=== PATIENT | female | born 1990 | race Caucasian/White ===

== ENCOUNTER 2018-08-05 21:35 | Outpatient (CLI) | payer OTHER | END 2018-08-05 21:36 | disposition critical access hospital (66) | LOC: EMS 21:35 | PROVIDERS: ATTEND Surgery | DX: O99.89 Other specified diseases and conditions complicating pregnancy, childbirth and the puerperium (principal); R10.9 Unspecified abdominal pain; Z3A.24 24 weeks gestation of pregnancy; Z87.442 Personal history of urinary calculi | CPT/HCPCS: A0425; A0427 ==

== ENCOUNTER 2018-08-05 21:59 | Observation (INO) | payer OTHER ==
[2018-08-05] MEDS ORDERED: LACTATED RINGERS 1,000 ML IV ONE (22:41)
[2018-08-05] MEDS ORDERED: fentaNYL 2,500 MCG/50 ML VIAL IV SCH (23:00)
[2018-08-05] MEDS ORDERED: fentaNYL 100 MCG/2 ML VIAL IVP SCH (23:04)
[2018-08-05 23:15] LABS: BASOPHILS % (AUTO) 0.1 %; EOSINOPHILS # (AUTO) 0.1 10^3/uL (0.0-0.7); EOSINOPHILS % (AUTO) 0.6 %; HGB - HEMOGLOBIN 10.9 g/dL (12.0-16.0); LYMPHOCYTES % (AUTO) 8.9 %; MEAN CORPUSCULAR HEMOGLOBIN 28.6 pg (27.0-31.0); MEAN CORPUSCULAR HGB CONC 33.5 g/dL (32.0-36.0); MEAN CORPUSCULAR VOLUME 85.3 fL (81.0-99.0); MEAN PLATELET VOLUME 7.8 fL (7.9-10.8); MONOCYTES # (AUTO) 0.5 10^3/uL (0.0-1.0); MONOCYTES % (AUTO) 4.6 %; NEUTROPHILS # (AUTO) 9.8 10^3/uL (1.5-6.6); NEUTROPHILS % (AUTO) 85.8 %; PLT - PLATELET COUNT 242 10^3/uL (130-450); RED BLOOD COUNT 3.82 10^6/uL (4.20-5.40); RED CELL DISTRIBUTION WIDTH 13.4 % (12.0-15.0); WHITE BLOOD COUNT 11.4 x10^3/uL (4.8-10.8)
[2018-08-05] MEDS: MORPHINE 10 MG/ML VIAL IVP SCH (23:28)
[2018-08-05 23:31] LABS: ALBUMIN 3.2 g/dL (3.2-5.5); ALBUMIN/GLOBULIN RATIO 1.1 (1.0-2.2); BILIRUBIN,TOTAL 0.5 mg/dL (0.2-1.0); CALCIUM 10.4 mg/dL (8.5-10.3); CREATININE 0.7 mg/dL (0.4-1.0); TOTAL PROTEIN 6.1 g/dL (6.7-8.2)
--- NOTE | 2018-08-05 23:33 | HISTORY & PHYSICAL EXAMINATION ---
Chief Complaint - Chief Complaint Chief Complaint: LEFT FLANK PAIN History of Present Illness - Admitted From Admitted From:: HOME - History Obtained From Records Reviewed: YES History obtained from: PATIENT Exam Limitations: NONE - History of Present Illness HPI Comment/Other: 27 y.o. EDC 11/30/18, EGA 23 2/7 weeks (based on LMP from [facility] Records). Patient placed in observation status overnight for pain control due to presumed right renal colic, which started around 5 PM and progressively worse, to point of patient brought to hospital by EMS. Hx of renal stone x 1 in the past 2 yrs ago shortly . 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 : reports: Kidney stones (x1 two years ago, ) HEENT: reports: None Psych: reports: None Musculoskeletal: reports: None Derm: reports: None MRSA Hx?: No - Past Surgical History Other past surgical history: PSH NEG - Substance History Use: Uses substance without health or social issues: NONE Meds/Allgy - Allergies Allergies/Adverse Reactions: Allergies Allergy/AdvReac Type Severity Reaction Status Date / Time Latex, Natural Rubber Allergy Rash Verified 08/05/18 22:52 Review of Systems - Genitourinary Genitourinary: reports: Flank pain (severe left flank pain) - Musculoskeletal Musculoskeletal: reports: Back pain (left flank/cvat) - Other Findings Other Findings: Beside left flank pain, ROS negative for all other systems: Exam - Vital Signs Reviewed Vital Signs: Yes - Physical Exam General Appearance: positive: Severe distress Eyes Bilateral: positive: Normal inspection ENT: positive: ENT inspection nml Neck: positive: Nml inspection Respiratory: positive: Chest non-tender, No respiratory distress, Breath sounds nml Cardiovascular: positive: Regular rate & rhythm, No murmur Peripheral Pulses: positive: 2+ Abdomen: positive: Non-tender, Other (No guarding or rebound, V/V: no lesions or abnormal dscharge Cx L/C FHR 140s, no evidence of contractions on toco.) Skin: positive: Color nml, No rash, Warm Extremities: positive: Non-tender, Full ROM Neurologic/Psychiatric: positive: Oriented x3, CN's nml (2-12) Conclusion/Plan - Problem List (1) Renal colic on left side Conclusion/Plan: # 23 2/7 weeks with left renal colic, severe. # Observation status overnight for IV Fluids and pain control # Renal US pending # Strain urines. Spoke with spouse on the phone and explained condition. He is coming home tomorrow. Patient understands condition and all questions answered. See orders. - Lab Results Fish Bones: 08/05/18 23:07
[2018-08-05 23:42] LABS: MUDS CUTOFF CONCENTRATIONS CUTOFF CONC BELOW:
[2018-08-05 23:48] LABS: BILIRUBIN,URINE NEGATIVE (NEGATIVE); GLUCOSE, URINE (UA) NEGATIVE (NEGATIVE); KETONES,URINE (UA) NEGATIVE (NEGATIVE); LEUKOCYTE ESTERASE, URINE LARGE (NEGATIVE); NITRITE,URINE POSITIVE (NEGATIVE); OCCULT BLOOD,URINE TRACE-INTA (NEGATIVE); PH,URINE 6.5 PH (5.0-7.5); PROTEIN,URINE NEGATIVE (NEGATIVE); UROBILINOGEN,URINE 0.2 (NORMAL) E.U./dL (NORMAL)
[2018-08-05] MEDS ORDERED: MORPHINE 2 MG/ML SYRINGE IVP ONE (23:50)
[2018-08-05 23:55] LABS: CLARITY,URINE HAZY (CLEAR)
[2018-08-06 00:02] LABS: AMPHETAMINE SCREEN,URINE NEGATIVE (NEGATIVE); BENZODIAZEPINES SCREEN, URINE NEGATIVE (NEGATIVE); COCAINE SCREEN URINE NEGATIVE (NEGATIVE); METHADONE SCREEN, URINE NEGATIVE (NEGATIVE); METHAMPHETAMINES SCREEN, URINE NEGATIVE (NEGATIVE); OPIATE SCREEN, URINE NEGATIVE (NEGATIVE); OXYCODONE SCREEN, URINE NEGATIVE (NEGATIVE); PROPOXYPHENE SCREEN, URINE NEGATIVE (NEGATIVE); TRICYCLIC ANTIDEPRESSANT,URINE NEGATIVE (NEGATIVE)
[2018-08-06 00:12] LABS: BACTERIA,URINE Many /HPF (None Seen); RBC,URINE 0-5 /HPF (0-5); SQUAMOUS EPITHELIAL CELL,UR FEW Squamous (<= Few)
[2018-08-06] MEDS: LACTATED RINGERS 1,000 ML IV SCH ×2 (01:25→12:36)
--- NOTE | 2018-08-06 01:57 | Ultrasound Report ---
Reason: left flank pain Procedure Date: 08/06/2018 Accession Number: [id number] / [id number] Procedure: US - Retroperitoneal Limited CPT Code: FULL RESULT: EXAM: RENAL ULTRASOUND EXAM DATE: 08/06/2018 01:32 AM. CLINICAL HISTORY: Left flank pain. COMPARISON: None. TECHNIQUE: Real-time scanning was performed with static images obtained. FINDINGS: Right Kidney: Not technically imaged. Left Kidney: 12.9 x 5.5 x 5.1 cm. There is left-sided hydronephrosis. In addition there is an echogenic focus in the inferior pole measuring 5.3 x 7.6 mm compatible with a shadowing stone. There is a questionable stone in the distal left ureter near the bladder. Left-sided ureteral jet is noted. IMPRESSION: 1. Left-sided hydronephrosis. 2. Calculus in the lower pole of the left kidney. 3. Probable calculus in the distal left ureter close to the bladder. RADIA
[2018-08-06] MEDS ORDERED: ONDANSETRON 4 MG/2 ML VIAL IVP PRN (02:00)
[2018-08-06] MEDS: MORPHINE 10 MG/ML VIAL IVP SCH ×2 (03:26→07:42)
[2018-08-06] MEDS ORDERED: MORPHINE 2 MG/ML SYRINGE IVP ONE (05:05)
[2018-08-06] MEDS ORDERED: cefTRIAXone 1 GM in SODIUM CHLORIDE 0.9% MINIBAG 100 ML IV SCH (06:00)
[2018-08-06 06:19] LABS: BILIRUBIN,URINE NEGATIVE (NEGATIVE); GLUCOSE, URINE (UA) NEGATIVE (NEGATIVE); KETONES,URINE (UA) 15 mg/dL (NEGATIVE); LEUKOCYTE ESTERASE, URINE SMALL (NEGATIVE); NITRITE,URINE POSITIVE (NEGATIVE); OCCULT BLOOD,URINE NEGATIVE (NEGATIVE); PROTEIN,URINE NEGATIVE (NEGATIVE); UROBILINOGEN,URINE 0.2 (NORMAL) E.U./dL (NORMAL)
[2018-08-06] MEDS ORDERED: SODIUM CHLORIDE 0.9% MINIBAG 100 ML IV ONE (06:30)
[2018-08-06] MEDS ORDERED: SODIUM CHLORIDE FLUSH 0.9% 10 ML SYRINGE ONE ×2 (06:30→06:39)
[2018-08-06 06:31] LABS: CLARITY,URINE HAZY (CLEAR)
[2018-08-06 06:32] LABS: BACTERIA,URINE Few /HPF (None Seen); RBC,URINE None Seen /HPF (0-5); SQUAMOUS EPITHELIAL CELL,UR FEW Squamous (<= Few)
--- NOTE | 2018-08-06 10:02 | PROVIDER PROGRESS NOTE ---
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 Rocephin 1,000 mg q24h started once UA came back POS nitrites. sitting up in bed, about to eat breakfast, denies passing a stone since placed in observation. Voided 700 mL since observation status, per RN report. Denies contractions. Reports some lower left pelvic pain in area of possible ureteral s tone O: VSS/AF, FHTs normal Imaging (Left Renal US): Hydronephrosis left side 7.6 x 5.3 mm left kidney stone in lower pole Questionable stone distal left ureter + stream left ureter. CV RRR LCTAB ABD Soft and NT +CVAT on left side only, far better than yesterday, mild-mod now MS/NM: N/C A/P: 23 2/7 weeks with infected left kidney stone 7.6 x 5.3 mm I am seeking to transfer to OB service with urology consultation capabilities. Currently waiting to hear back from [place] in [place] regarding availability. Patient understands condition and all questions answered. Objective - Vital Signs/Intake & Output Vital Signs: Vital Signs x48h Temp Pulse Resp BP BP Pulse Ox 08/06/18 08:00 36.9 C 92 18 102/62 99 08/06/18 07:00 36.8 C 82 18 98/55 L 97 08/06/18 02:08 36.9 C 86 20 112/69 96 Intake & Output: Intake & Output 08/03/18 08/04/18 08/05/18 08/06/18 23:59 23:59 23:59 23:59 Intake Total 1000 1050 Output Total 2810 Balance 1000 -1760 - Lab Results Fish Bones: 08/05/18 23:07 08/05/18 23:07 Other Labs: Lab Results x24hrs 08/06/18 08/05/18 08/05/18 Range/Units 06:00 23:07 23:07 WBC 11.4 H (4.8-10.8) x10^3/uL RBC 3.82 L (4.20-5.40) 10^6/uL Hgb 10.9 L (12.0-16.0) g/dL Hct 32.6 L (37.0-47.0) % MCV 85.3 (81.0-99.0) fL MCH 28.6 (27.0-31.0) pg MCHC 33.5 (32.0-36.0) g/dL RDW 13.4 (12.0-15.0) % Plt Count 242 (130-450) 10^3/uL MPV 7.8 L (7.9-10.8) fL Neut # (Auto) 9.8 H (1.5-6.6) 10^3/uL Lymph # (Auto) 1.0 L (1.5-3.5) 10^3/uL [place] # (Auto) 0.5 (0.0-1.0) 10^3/uL Eos # (Auto) 0.1 (0.0-0.7) 10^3/uL Baso # (Auto) 0.0 (0.0-0.1) 10^3/uL Absolute Nucleated RBC 0.00 x10^3/uL Nucleated RBC % 0.0 /100WBC Sodium 134 L (135-145) mmol/L Potassium 3.5 (3.5-5.0) mmol/L Chloride 104 (101-111) mmol/L Carbon Dioxide 22 (21-32) mmol/L Anion Gap 8.0 (6-13) BUN 9 (6-20) mg/dL Creatinine 0.7 (0.4-1.0) mg/dL Estimated GFR (MDRD) 101 (>89) Glucose 103 H (70-100) mg/dL Calcium 10.4 H (8.5-10.3) mg/dL Total Bilirubin 0.5 (0.2-1.0) mg/dL AST 17 (10-42) IU/L ALT 12 (10-60) IU/L Alkaline Phosphatase 105 (42-121) IU/L Total Protein 6.1 L (6.7-8.2) g/dL Albumin 3.2 (3.2-5.5) g/dL Globulin 2.9 (2.1-4.2) g/dL Albumin/Globulin Ratio 1.1 (1.0-2.2) Urine Color YELLOW Urine Clarity HAZY (CLEAR) Urine pH 8.0 H (5.0-7.5) PH Ur Specific [place] 1.010 (1.002-1.030) Urine Protein NEGATIVE (NEGATIVE) mg/dL Urine Glucose (UA) NEGATIVE (NEGATIVE) mg/dL Urine Ketones 15 H (NEGATIVE) mg/dL Urine Occult Blood NEGATIVE (NEGATIVE) Urine Nitrite POSITIVE H (NEGATIVE) Urine Bilirubin NEGATIVE (NEGATIVE) Urine Urobilinogen 0.2 (NORMAL) (NORMAL) E.U./dL Ur Leukocyte Esterase SMALL H (NEGATIVE) Urine RBC None Seen (0-5) /HPF Urine WBC 6-10 H (0-5) /HPF Ur Squamous Epith Cells FEW Squamous (<= Few) Urine Bacteria Few (None Seen) /HPF Ur Microscopic Review INDICATED Urine Culture Comments INDICATED Urine Opiates Screen (NEGATIVE) Ur Oxycodone Screen (NEGATIVE) Urine Methadone Screen (NEGATIVE) Ur Propoxyphene Screen (NEGATIVE) Ur Barbiturates Screen (NEGATIVE) Ur Tricyclics Screen (NEGATIVE) Ur Phencyclidine Scrn (NEGATIVE) Ur Amphetamine Screen (NEGATIVE) U Methamphetamines Scrn (NEGATIVE) U Benzodiazepines Scrn (NEGATIVE) Urine Cocaine Screen (NEGATIVE) U Cannabinoids Screen (NEGATIVE) Fibronectin (NEGATIVE) 08/05/18 08/05/18 Range/Units 23:00 22:20 WBC (4.8-10.8) x10^3/uL RBC (4.20-5.40) 10^6/uL Hgb (12.0-16.0) g/dL Hct (37.0-47.0) % MCV (81.0-99.0) fL MCH (27.0-31.0) pg MCHC (32.0-36.0) g/dL RDW (12.0-15.0) % Plt Count (130-450) 10^3/uL MPV (7.9-10.8) fL Neut # (Auto) (1.5-6.6) 10^3/uL Lymph # (Auto) (1.5-3.5) 10^3/uL [place] # (Auto) (0.0-1.0) 10^3/uL Eos # (Auto) (0.0-0.7) 10^3/uL Baso # (Auto) (0.0-0.1) 10^3/uL Absolute Nucleated RBC x10^3/uL Nucleated RBC % /100WBC Sodium (135-145) mmol/L Potassium (3.5-5.0) mmol/L Chloride (101-111) mmol/L Carbon Dioxide (21-32) mmol/L Anion Gap (6-13) BUN (6-20) mg/dL Creatinine (0.4-1.0) mg/dL Estimated GFR (MDRD) (>89) Glucose (70-100) mg/dL Calcium (8.5-10.3) mg/dL Total Bilirubin (0.2-1.0) mg/dL AST (10-42) IU/L ALT (10-60) IU/L Alkaline Phosphatase (42-121) IU/L Total Protein (6.7-8.2) g/dL Albumin (3.2-5.5) g/dL Globulin (2.1-4.2) g/dL Albumin/Globulin Ratio (1.0-2.2) Urine Color YELLOW Urine Clarity HAZY (CLEAR) Urine pH 6.5 (5.0-7.5) PH Ur Specific [place] 1.010 (1.002-1.030) Urine Protein NEGATIVE (NEGATIVE) mg/dL Urine Glucose (UA) NEGATIVE (NEGATIVE) mg/dL Urine Ketones NEGATIVE (NEGATIVE) mg/dL Urine Occult Blood TRACE-INTA (NEGATIVE) Urine Nitrite POSITIVE H (NEGATIVE) Urine Bilirubin NEGATIVE (NEGATIVE) Urine Urobilinogen 0.2 (NORMAL) (NORMAL) E.U./dL Ur Leukocyte Esterase LARGE H (NEGATIVE) Urine RBC 0-5 (0-5) /HPF Urine WBC >25 H (0-5) /HPF Ur Squamous Epith Cells FEW Squamous (<= Few) Urine Bacteria Many H (None Seen) /HPF Ur Microscopic Review Urine Culture Comments INDICATED Urine Opiates Screen NEGATIVE (NEGATIVE) Ur Oxycodone Screen NEGATIVE (NEGATIVE) Urine Methadone Screen NEGATIVE (NEGATIVE) Ur Propoxyphene Screen NEGATIVE (NEGATIVE) Ur Barbiturates Screen NEGATIVE (NEGATIVE) Ur Tricyclics Screen NEGATIVE (NEGATIVE) Ur Phencyclidine Scrn NEGATIVE (NEGATIVE) Ur Amphetamine Screen NEGATIVE (NEGATIVE) U Methamphetamines Scrn NEGATIVE (NEGATIVE) U Benzodiazepines Scrn NEGATIVE (NEGATIVE) Urine Cocaine Screen NEGATIVE (NEGATIVE) U Cannabinoids Screen NEGATIVE (NEGATIVE) Fibronectin NEGATIVE (NEGATIVE)
[2018-08-06] MEDS ORDERED: MORPHINE 10 MG/ML VIAL IVP SCH (11:30)
--- NOTE | 2018-08-06 13:02 | DISCHARGE SUMMARY ---
Physician: Jonathon Mcqueen DO DATE OF ADMISSION: 08/05/2018 DATE OF DISCHARGE: 08/06/2018 TRANSFER SUMMARY HISTORY OF PRESENT ILLNESS: This patient is a 27-year-old female, 3, para 2, with a due date 11/30/2018. Estimated gestational age is 23-2/7 weeks based on last menstrual period and partial records from [facility]. The patient was placed in observation status last night, on 08/05/2018, for pain control and IV fluids due to an infected right kidney stone. The patient presented to the hospital with severe excruciating left lower back pain and left flank pain. She has a history of a renal stone 2 years ago shortly . Her course has been otherwise essentially unremarkable. LABS On 05/15/2018: GC and chlamydia were both negative. On 05/18/2018: UA was negative. RPR nonreactive. Hepatitis B surface antigen was negative. HIV negative. Rubella positive. Hepatitis C negative. On 06/25/2018: Maternal blood type O negative and antibody screen was negative. PAST MEDICAL HISTORY: Negative. PAST SURGICAL HISTORY: Negative. SOCIAL HISTORY: Negative for smoking, drinking, or drugs. MEDICATIONS: Chewable vitamins. ALLERGIES: LATEX. PHYSICAL EXAMINATION VITAL SIGNS: Stable, afebrile upon presentation. HEART: Regular rate and rhythm. LUNGS: Clear to auscultation. NEURO: Exam unremarkable. She was in severe distress, in pain, unable to stay still in the examination room. ABDOMEN: Her abdominal exam was notable for a nontender uterus but marked left flank pain and positive left CVA tenderness, exquisite in nature. PELVIC: Speculum exam of the vagina showed normal vaginal discharge, a cervix that was visually closed and closed on cervical examination with a sterile glove. She had an NST which showed a normal heart rate in the 140s, with no evidence of contractions. LABORATORY Her laboratory data showed the following: A white count of 11.4, hemoglobin and hematocrit of 10.9 and 32.6, platelet count 242. A basic metabolic panel showed a sodium of 134, potassium 3.5, BUN and creatinine of 9 and 0.7, glucose of 103. Liver function tests were unremarkable. Urinalysis positive for nitrites with large leukocyte esterase, a few squamous epithelial cells, and trace amount of blood. A urine tox screen was negative. She had a fibronectin as well that was negative. HOSPITAL COURSE: Patient was placed in observation status overnight, started on IV fluids, received 1000 mL LR bolus hourly x2, then 100 mL/hour continuous IV fluids, as well as morphine IV 7 mg every 4 hours to try to control her pain. She was also started on Rocephin 1000 mg IV piggyback every 24 hours. Her pain subsided markedly after approximately 6 hours in the hospital with IV morphine and IV Rocephin; however, she still has mild to moderate pain. IMAGING Left renal ultrasound shortly after presentation to the hospital showed the following: Left hydronephrosis with a left kidney that measures 12.9 x 5.5 x 5.1 cm. There was a 5.3 x 7.6 echogenic focus in the inferior pole of the left kidney, compatible with a shadowing stone, and questionable stone in the distal left ureter as well with a left-sided ureteral jet noted. Impression from the ultrasound: 1. Left-sided hydronephrosis. 2. Calculus in the lower pole of the left kidney. 3. Probable calculus in the distal left ureter close to the bladder. DISPOSITION AND PLAN: The patient is a 23-2/7 weeks' gestation with infected left kidney stone measuring 7.6 x 5.3 mm and in need of a urology consultation, which is not available at [facility]. Arrangements have been made for the patient to be transferred to a facility with both obstetrical and urology service. Dr. Niya Ojeda at [facility] has accepted transfer of the patient to the antepartum service, and the patient will be going by ground ambulance. Copies of records from her care and her hospital observation status here at [facility] have been made available. The patient is to be transferred by ground ambulance to [facility], and Dr. Ojeda, as previously stated, is the accepting physician. The patient will go directly to the antepartum service. TD: 08/06/2018 11:32 JUSTICE
[2018-08-06 14:12] VITALS: BP 103/65
== END 2018-08-06 14:27 | disposition short-term general hospital (02) ==
LOC: WFO 21:59 → FBP 22:17 → WFO 23:20 → FBP 23:21
PROVIDERS: ADMIT Obstetrics & Gynecology; ATTEND Obstetrics & Gynecology
DX: O99.89 Other specified diseases and conditions complicating pregnancy, childbirth and the puerperium (principal); N13.6 Pyonephrosis; Z3A.23 23 weeks gestation of pregnancy
CPT/HCPCS: 36415; 76775; 80053; 81001; 82731; 85025; 87086; 96361; 96365; 96375; 96376; 99213; G0378; J2270; J7120; 80306; 81003

== ENCOUNTER 2018-12-19 19:13 | Emergency (ER) | payer OTHER ==
[2018-12-19 19:19] VITALS: BP 124/71
--- NOTE | 2018-12-19 19:26 | ED Physician Documentation ---
History of Present Illness - Stated complaint Stated Complaint: BREAST PX - Chief complaint Chief Complaint: General - History obtained from History obtained from: Patient - Additonal information Additional information: Patient is a 28-year-old female 5 weeks and breast-feeding resenting with several days of nipple discomfort particularly when breast-feeding. Patient is concerned about thrush. Patient denies any abnormal discharge, erythema, itchiness, or other skin changes. Patient reports she had a clogged duct to the right breast several days ago that she was able to massage out without issue. Patient denies other swelling, fever, nausea, vomiting or other complaints. No other improving or worsening factors noted. 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 : Kidney stones (x1 two years ago, ) HEENT: None Psych: None Musculoskeletal: None Derm: None - Present Medications Home Medications: Ambulatory Orders Medication Instructions Recorded Confirmed Nystatin 100,000 unit PO QID 5 Days ml 12/19/18 Pnv No.95/Ferrous Fum/Folic AC 1 each PO 12/19/18 [ [place]] - Allergies Allergies/Adverse Reactions: Allergies Allergy/AdvReac Type Severity Reaction Status Date / Time Latex, Natural Rubber Allergy Rash Verified 12/19/18 19:19 - Social History Smoking Status: Never smoker PD ED PE NORMAL - Vitals Vital signs reviewed: Yes - General General: Alert and oriented X 3, No acute distress, Well developed/nourished - HEENT HEENT: Atraumatic, Moist mucous membranes - Neck Neck: Supple, no meningeal sign - Respiratory Respiratory: No respiratory distress - Female Female : Other (Bilateral breast exam unremarkable. No puckering of skin, erythema, abnormal drainage or other abnormalities noted. No palpable masses or exquisite tenderness.) - Derm Derm: Normal color, Warm and dry, No rash - Extremities Extremities: No deformity, No tenderness to palpate, No edema - Neuro Neuro: Alert and oriented X 3, No motor deficit, No sensory deficit - Psych Psych: Normal mood, Normal affect Results - Vitals Vitals: Vital Signs - 24 hr 12/19/18 19:16 Temperature 36.1 C L Heart Rate 72 Respiratory 18 Rate Blood Pressure 124/71 O2 Saturation 99 Oxygen O2 Source Room air PD MEDICAL DECISION MAKING - ED course Complexity details: re-evaluated patient, considered differential, d/w patient ED course: Do not find evidence of mastoiditis or other acute pathology at this time. Physical exam is extremely benign. Patient's son was in the room and also examine his mouth which does not show evidence of thrush. Given patient's concern and complaints, however, we will plan to treat as thrush. Discussed use of nystatin which is dosed for and can be used topically to nipples. Also discussed close follow-up with [facility] [facility] [facility], other supportive cares, strict return precautions. Patient voiced understanding and is comfortable with discharge plan. Departure - Departure Disposition: Home, Self Care Clinical Impression: Thrush Condition: Good Instructions: Clemencia Infec Thrush Follow-Up: your,doctor [Other] - Within 3 Days Prescriptions: Nystatin 100,000 unit PO QID 5 Days ml Comments: Please continue breast-feeding. Please use medication as prescribed and apply directly to the nipple. This is safe for the baby. Please contact [facility] [facility] on Friday and establish follow-up in the next 2 to 3 days. Return to ED sooner if experience worsening symptoms or have other concerns.
== END 2018-12-19 19:56 | disposition home or self-care (01) ==
LOC: ED 19:13
DX: O98.83 Other maternal infectious and parasitic diseases complicating the puerperium (principal); B37.89 Other sites of candidiasis
CPT/HCPCS: 99282; 99284

== ENCOUNTER 2019-11-22 12:00 | Outpatient (CLI) | payer OTHER ==
--- NOTE | 2019-11-22 14:06 | Ultrasound Report ---
PROCEDURE: Retroperitoneal INDICATIONS: L URETERAL CALCULUS TECHNIQUE: Real-time scanning was performed of the retroperitoneal organs, with image documentation. COMPARISON: Retroperitoneal ultrasound 08/06/2018 FINDINGS: Kidneys: Kidneys are normal in size. Right kidney measures 12.3 cm long; left kidney measures 12.1 cm long. Right renal cortical thickness is 1.0 cm; left renal cortical thickness is 1.3 cm. No kory d masses. Multiple areas of increased echogenicity are noted on the right the largest in the lower po le measuring 4 x 3 x 4 mm. Multiple left-sided calcifications are identified the largest measuring 6 x 4 x 5 mm. Mild right hydronephrosis is present. Previous left hydronephrosis has resolved. Bladder: Prevoid volume 95 cc, post void residual 18 cc. Bilateral ureteral jets are identified. No b ladder masses are identified. IMPRESSION: 1. Mild right hydronephrosis. 2. Interval resolution of previous left hydronephrosis. 3. Bilateral renal calcifications. Calcifications in the left kidney appear similar compared to prior exam dated 08/06/2018, at which time only the left kidney was evaluated. Reviewed by: Jeana Suarez MD on 11/22/2019 2:05 PM PDT Approved by: Jeana Suarez MD on 11/22/2019 2:05 PM PDT Station ID: [id number]
== END 2019-11-22 12:01 | disposition home or self-care (01) ==
LOC: DI 12:00
PROVIDERS: ATTEND Urology
DX: N20.1 Calculus of ureter (principal); N28.89 Other specified disorders of kidney and ureter
CPT/HCPCS: 76770

== ENCOUNTER 2020-02-28 10:01 | Outpatient (CLI) | payer OTHER ==
--- NOTE | 2020-03-01 11:34 | Nuclear Medicine Report ---
PROCEDURE: Parathyroid Planar AND SPECT Imaging TECHNIQUE: After intravenous administration of Tc-99m sestamibi, anterior planar images of the neck and mediasti num were obtained at approximately 10 minutes and 2-3 hours. SPECT images were acquired after the 10 minute planar images. COMPARISON: None available. FINDINGS: On the early images, the thyroid gland is bilobed and has normal size and morphology. The re is mild focally increased activity in the inferior pole of the left thyroid lobe. The delayed j carlos ges show no preferential tracer retention in the inferior left thyroid bed, testing the parathyroid a denoma. The SPECT images demonstrate mild increased activity in the inferior pole of the left thyroi d bed. There is mild focal uptake in the right subareolar area, probably related to asymmetry of the right s ubmandibular gland or a prominent submandibular lymph node. There is abnormal activity in the left anterior chest wall (? left breast) and anterior mediastinum. IMPRESSION: 1. Possible parathyroid adenoma in the inferior pole of the left thyroid bed. 2. Abnormal activity in the left chest wall and anterior mediastinum. Recommend clinical correlation. If clinically indicated, breast ultrasound or chest CT may be helpful. 3. Mild focal uptake in the right subareolar area, probably related to asymmetry of the right submand ibular gland or a prominent submandibular lymph node. Reviewed by: Adriana Crowder MD on 03/01/2020 11:33 AM PDT Approved by: Adriana Crowder MD on 03/01/2020 11:33 AM PDT Station ID: [id number]
== END 2020-02-28 10:02 | disposition home or self-care (01) ==
LOC: DI 10:01
PROVIDERS: ATTEND Nurse Practitioner Family
DX: R93.7 Abnormal findings on diagnostic imaging of other parts of musculoskeletal system (principal); R93.89 Abnormal findings on diagnostic imaging of other specified body structures
CPT/HCPCS: 78070

== ENCOUNTER 2020-10-19 07:00 | Outpatient (CLI) | payer OTHER | END 2020-10-19 23:59 | disposition home or self-care (01) | LOC: LAB.N 07:00 | PROVIDERS: ATTEND Family Medicine | DX: R10.9 Unspecified abdominal pain (principal) | CPT/HCPCS: 87086 ==